=== PATIENT | female | born 1990 | race Caucasian/White ===

== ENCOUNTER 2017-10-21 13:02 | Emergency (ER) | payer MEDICAID ==
[2017-10-21 13:09] VITALS: BP 140/103
--- NOTE | 2017-10-21 14:10 | ED Physician Documentation ---
PD HPI URI - Stated complaint Stated Complaint: COUGH/FEVER - Chief complaint Chief Complaint: General - History obtained from History obtained from: Patient - History of Present Illness Timing - onset: How many days ago (4-5) Timing duration: Days (4-5 days of illness with worsening the past day) Timing details: Gradual onset, Still present Associated symptoms: Fever, Nasal congestion, Sinus pain Contributing factors: No: Sick contact, Travel Similar symptoms before: Has not had sx before Recently seen: Not recently seen Review of Systems Constitutional: reports: Fever (the past day) Nose: reports: Rhinorrhea / runny nose (for 5 days), Sinus pressure / pain (for 1-2 days) Throat: reports: Sore throat Respiratory: reports: Cough (mild) GI: reports: Diarrhea (yesterday). denies: Nausea, Vomiting Skin: denies: Rash, Lesions Neurologic: denies: Near syncope, Altered mental status, Headache, Head injury PD PAST MEDICAL HISTORY - Past Medical History Past Medical History: No Cardiovascular: Hypertension - Past Surgical History Past Surgical History: Yes /SPANISHER: Other - Present Medications Home Medications: Ambulatory Orders Medication Instructions Recorded Confirmed Acetaminophen [Tylenol] 650 mg PO Q4HR PRN 10/21/17 10/21/17 Albuterol Sulf [Ventolin Hfa 1 - 2 puffs INH Q4HR PRN #1 inhaler 10/21/17 Inhaler] Azithromycin [Zithromax] 250 mg PO DAILY #6 tablet 10/21/17 Benzonatate [Tessalon] 100 mg PO TID PRN #25 capsule 10/21/17 Dexamethasone [Decadron] 4 mg PO DAILY #5 tablet 10/21/17 Guaifenesin [Mucinex] 600 mg PO DAILY PM 10/21/17 10/21/17 Levonorgestrel [Mirena] 1 each 10/21/17 guaiFENesin/CODEINE [Robitussin AC] 10 ml PO Q6H PRN #240 ml 10/21/17 - Allergies Allergies/Adverse Reactions: Allergies Allergy/AdvReac Type Severity Reaction Status Date / Time No Known Drug Allergies Allergy Verified 10/21/17 13:09 - Social History Does the pt smoke?: No Smoking Status: Never smoker Does the pt drink ETOH?: Yes Does the pt have substance abuse?: No - Immunizations Immunizations are current?: Yes - POLST Patient has POLST: No PD ED PE NORMAL - Vitals Vital signs reviewed: Yes - General General: Alert and oriented X 3, No acute distress, Well developed/nourished - HEENT HEENT: Ears normal, Pharynx benign, Other (sinus tender to percussion left maxillary) - Neck Neck: Supple, no meningeal sign, No adenopathy - Cardiac Cardiac: RRR, No murmur - Respiratory Respiratory: Clear bilaterally - Abdomen Abdomen: Soft, Non tender - Derm Derm: Normal color, Warm and dry, No rash - Neuro Neuro: Alert and oriented X 3, No motor deficit, Normal speech Results - Vitals Vitals: Oxygen O2 Source Room air PD MEDICAL DECISION MAKING - ED course Complexity details: considered differential (seems URI but has worse sinus symptoms so consider secondary bacterial infection. ), d/w patient Departure - Departure Disposition: 01 Home, Self Care Clinical Impression: Upper respiratory infection Qualifiers: URI type: unspecified URI Qualified Code(s): J06.9 - Acute upper respiratory infection, unspecified Sinus infection Qualifiers: Sinusitis location: frontal Chronicity: acute Recurrence: non-recurrent Qualified Code(s): J01.10 - Acute frontal sinusitis, unspecified Condition: Stable Record reviewed to determine appropriate education?: Yes Instructions: ED URI Viral W Wheezing Follow-Up: [facility] [Provider Group] Prescriptions: Albuterol Sulf [Ventolin Hfa Inhaler] 1 - 2 puffs INH Q4HR PRN #1 inhaler PRN Reason: Shortness Of Air/Wheezing Azithromycin [Zithromax] 250 mg PO DAILY #6 tablet Benzonatate [Tessalon] 100 mg PO TID PRN #25 capsule PRN Reason: Cough Dexamethasone [Decadron] 4 mg PO DAILY #5 tablet guaiFENesin/CODEINE [Robitussin AC] 10 ml PO Q6H PRN #240 ml PRN Reason: Cough Comments: This most commonly is viral. Although it does sound like he may have some secondary sinus infection as well. For the symptoms would go with an albuterol inhaler 2 puffs 4 times a day for the next 7-10 days. Use Decadron for inflammation of the airways daily for 5 days. Codeine cough medicine can help decrease the cough as well as Tessalon for the cough. Drink lots of fluids. Take Zithromax antibiotic for 5 days for potential bacterial infection as well. I would anticipate improvement over the next several days with decrease in symptoms later today from the cough medicine steroid and inhaler. He may still have a some cough that lasts 2-3 weeks but you should generally feel better. Discharge Date/Time: 10/21/17 14:48
== END 2017-10-21 14:48 | disposition home or self-care (01) ==
LOC: ED 13:02
DX: J06.9 Acute upper respiratory infection, unspecified (principal); J01.10 Acute frontal sinusitis, unspecified; I10 Essential (primary) hypertension
CPT/HCPCS: 99283